=== PATIENT | male | born 1970 ===

== ENCOUNTER 2017-11-24 17:44 | Emergency (ER) | payer BC ==
[2017-11-24 17:52] VITALS: BP 144/94; PULSE 65; RESP 20; TEMP 97.9; O2SAT 99
[2017-11-24] MEDS ORDERED: Acetaminophen-Codeine 300/30 mg Tab PO STA (18:15)
[2017-11-24] MEDS ORDERED: Acetaminophen-Codeine 300/30 mg Tab PO ONE (18:21)
--- NOTE | 2017-11-24 18:36 | C.PDOC ---
History Of Present Illness 47 y/o male presents to the ER complaining of dental pain in the left lower molar which has been present for the past 4 days. Patient states that the pain radiates to his ears. Patient reports that he does not have a dentist and he took Tylenol without relief. Time Seen by Provider: 11/24/17 18:11 Chief Complaint (Nursing): Dental Pain History Per: Patient History/Exam Limitations: no limitations Onset/Duration Of Symptoms: Days Current Symptoms Are (Timing): Still Present Severity: Moderate Past Medical History Reviewed: Historical Data, Nursing Documentation, Vital Signs Vital Signs: Last Vital Signs Temp 97.9 F 11/24/17 17:48 Pulse 65 11/24/17 17:48 Resp 20 11/24/17 17:48 BP 144/94 H 11/24/17 17:48 Pulse Ox 99 11/24/17 18:36 - Medical History PMH: No Chronic Diseases Surgical History: No Surg Hx Family History: States: No Known Family Hx - Social History Hx Tobacco Use: No Hx Alcohol Use: No Hx Substance Use: No - Immunization History Hx Tetanus Toxoid Vaccination: No Hx Influenza Vaccination: No Hx Pneumococcal Vaccination: No Review Of Systems Except As Marked, All Systems Reviewed And Found Negative. Constitutional: Negative for: Fever, Chills ENT: Positive for: Mouth Pain Physical Exam - Physical Exam Appears: Non-toxic, No Acute Distress Skin: Normal Color, Warm Head: Atraumatic, Normacephalic Eye(s): bilateral: Normal Inspection Nose: Normal Oral Mucosa: Moist Teeth: No Normal Dentition (poor dentition), Caries (multiple caries, large cavity to left lower molar ) Neck: Supple Chest: Symmetrical Neurological/Psych: Oriented x3, Normal Speech ED Course And Treatment O2 Sat by Pulse Oximetry: 99 (RA) Pulse Ox Interpretation: Normal Medical Decision Making Medical Decision Making: Impression: dental pain, poor dentition Plan: Penicillin and Tylenol #3 Re-Eval: patient afebrile and in no distress. Advise follow up with Dentist. Disposition Counseled Patient/Family Regarding: Diagnosis, Need For Followup, Rx Given - Disposition Disposition: HOME/ ROUTINE Disposition Time: 18:35 Condition: STABLE Additional Instructions: Please follow up with dentist or dental clinic in few days Take medications as needed for pain Take Penicillin to prevent infection you can also apply ice pack to face Prescriptions: Acetaminophen with Codeine [Tylenol with Codeine No. 3 300 mg-30 mg] 1 tab PO Q8 PRN #20 tab PRN Reason: Pain, Moderate (4-7) Ibuprofen [Motrin] 600 mg PO Q8 #30 tab Penicillin VK [Penicillin VK Tab] 500 mg PO Q12 #28 tab Instructions: Tooth Decay, Adult Forms: [facility], [facility] ([place]) - POA Present On Arrival: None - Clinical Impression Clinical Impression: Dental caries, Gingivitis, Pain, dental - PA / [employer]READ [employer]ER / Resident Statement MD/DO has reviewed & agrees with the documentation as recorded. - Scribe Statement The provider has reviewed the documentation as recorded by the Etienne Mota Provider Attestation All medical record entries made by the Etienne were at my direction and personally dictated by me. I have reviewed the chart and agree that the record accurately reflects my personal performance of the history, physical exam, medical decision making, and the department course for this patient. I have also personally directed, reviewed, and agree with the discharge instructions and disposition.
== END 2017-11-24 19:09 | disposition home or self-care (01) ==
LOC: C.ER 17:44
DX: K02.9 Dental caries, unspecified (principal); K05.10 Chronic gingivitis, plaque induced